=== PATIENT | female | born 1970 | race Two or more races ===

== ENCOUNTER 2020-05-01 20:24 | Emergency (ER) | payer MEDICAID ==
[~2020-05-01] VITALS: Ht 160 cm; Wt 66.7 kg
--- NOTE | 2020-05-01 20:41 | NUR ---
PT BIBSELF C/O SOB. PT RECENTLY TESTED POSITIVE FOR COVID X10 DAYS AGO, STATES SYMPTOMS HAVE BEEN PROGRESSIVELY GETTING WORSE PAST THREE DAYS. PT ALSO C/O NAUSEA AND WEAKNESS. O2 SAT 91% ROOM AIR, PLACED ON 2L NC AND TOLERATING WELL, O2 NOW SAT 100%. PT AAOX4. RESPIRATIONS EVEN AND UNLABORED. SKIN INTACT. VITAL SIGNS STABLE. NO ACUTE DISTRESS NOTED AT THIS TIME. PLACED ON MONITOR, WILL CONTINUE TO MONITOR
--- NOTE | 2020-05-01 20:42 | NUR ---
LEAH [phone] RACHEL DAUGHTER [phone]
[2020-05-01] MEDS ORDERED: ONDANSETRON HCL/PF 4 MG/2 ML VIAL ONE (20:58)
--- NOTE | 2020-05-01 21:06 | NUR ---
IV INITIATED RAC 20G. LABS DRAWN FROM SITE. WINE MASTER AT BEDSIDE FOR COLLECTION. IV INTACT AND PATENT, PLACED ON SALINE LOCK.
[2020-05-01 21:21] LABS: BASOPHILS % (AUTO) 0.3 % (0.0-2.0); HEMATOCRIT 42 % (33-45); HEMOGLOBIN 14.1 g/dL (11.5-14.8); LYMPHOCYTES # (AUTO) 0.7 /CMM (0.8-4.8); LYMPHOCYTES % (AUTO) 17.3 % (20.0-44.0); MEAN CORPUSCULAR HGB CONC 34 g/dl (31.0-36.0); MEAN CORPUSCULAR VOLUME 93 fL (82-100); MONOCYTES # (AUTO) 0.3 /CMM (0.1-1.30); MONOCYTES % (AUTO) 6.7 % (2.0-12.0); NEUTROPHILS % (AUTO) 75.7 % (43.0-81.0); PLATELET COUNT (AUTO) 161 /CMM (150-450); RED BLOOD CELL COUNT(AUTO) 4.48 MIL/uL (4.0-5.2)
[2020-05-01 21:25] LABS: CALCIUM, SERUM 8.5 mg/dL (8.5-10.1); CREATININE 0.9 mg/dL (0.6-1.3); POTASSIUM 3.2 mmol/L (3.5-5.1)
[2020-05-01] MEDS ORDERED: ONDANSETRON HCL/PF 4 MG/2 ML VIAL IV ONE (21:30)
[2020-05-01] MEDS ORDERED: IV NS 0.9% 500 ML BAG IV ONE (21:30)
--- NOTE | 2020-05-01 21:30 | NUR ---
RADIOLOGY AT BEDSIDE FOR CXR
--- NOTE | 2020-05-01 21:35 | NUR ---
PT AMBULATORY TO RESTROOM WITH STEADY GAIT
[2020-05-01 22:26] VITALS: BP 128/68
--- NOTE | 2020-05-01 22:26 | NUR ---
Patient discharged to home in stable condition. Written and verbal after care instructions given. Patient verbalizes understanding of instruction.IV removed. Catheter intact and site benign. Pressure and 4x4 applied to site. No bleeding noted.Pt ambulatory with a steady gait
== END 2020-05-01 22:27 | disposition home or self-care (01) ==
LOC: ER 20:27
DX: U07.1 COVID-19 (principal); J12.89 Other viral pneumonia; R11.0 Nausea
CPT/HCPCS: 36415; 71045; 80048; 85025; 96361; 96374; 99285; J2405; J7030